=== PATIENT | male | born 1965 | race Caucasian/White ===

== ENCOUNTER 2020-09-02 10:03 | Outpatient (CLI) | payer OTHER | END 2020-09-02 10:04 | disposition home or self-care (01) | LOC: COV 10:03 | PROVIDERS: ATTEND Family Medicine | DX: R50.9 Fever, unspecified (principal); Z20.828 Contact with and (suspected) exposure to other viral communicable diseases; R06.02 Shortness of breath; R53.83 Other fatigue; M79.10 Myalgia, unspecified site ==

== ENCOUNTER 2021-07-29 13:34 | Day surgery (SDC) | payer BC, OTHER ==
[2021-07-29 14:04] LABS: BASOPHILS % (AUTO) 0.8 %; EOSINOPHILS # (AUTO) 0.1 10^3/uL (0.0-0.7); EOSINOPHILS % (AUTO) 2.2 %; HCT - HEMATOCRIT 45.9 % (42.0-52.0); HGB - HEMOGLOBIN 15.1 g/dL (14.0-18.0); LYMPHOCYTES % (AUTO) 27.4 %; MEAN CORPUSCULAR HEMOGLOBIN 30.8 pg (27.0-31.0); MEAN CORPUSCULAR HGB CONC 32.9 g/dL (32.0-36.0); MEAN CORPUSCULAR VOLUME 93.5 fL (80.0-94.0); MEAN PLATELET VOLUME 9.9 fL (7.4-11.4); MONOCYTES # (AUTO) 0.1 10^3/uL (0.0-1.0); MONOCYTES % (AUTO) 2.8 %; NEUTROPHILS # (AUTO) 2.4 10^3/uL (1.5-6.6); NEUTROPHILS % (AUTO) 66.5 %; PLT - PLATELET COUNT 245 10^3/uL (130-450); RED BLOOD COUNT 4.91 10^6/uL (4.70-6.10); RED CELL DISTRIBUTION WIDTH 13.4 % (12.0-15.0); WHITE BLOOD COUNT 3.6 x10^3/uL (4.8-10.8)
[2021-07-29 14:19] LABS: ALBUMIN 4.7 g/dL (3.2-5.5); ALBUMIN/GLOBULIN RATIO 1.3 (1.0-2.2); BILIRUBIN,TOTAL 1.2 mg/dL (0.2-1.0); CREATININE 1.4 mg/dL (0.6-1.2); POTASSIUM 4.4 mmol/L (3.5-5.0); TOTAL PROTEIN 8.4 g/dL (6.7-8.2)
[2021-07-29] MEDS ORDERED: IOPAMIDOL-300 100 ML VIAL ONE (16:58)
[2021-07-29] MEDS ORDERED: IOPAMIDOL-300 100 ML VIAL IVP ONE (17:10)
--- NOTE | 2021-07-29 17:23 | ED Physician Documentation ---
PD HPI ABD PAIN - Stated complaint Stated Complaint: ABD PX - Chief complaint Chief Complaint: Abd Pain - History obtained from History obtained from: Patient - History of Present Illness Timing - onset: Yesterday Timing - duration: Days (2) Timing - details: Gradual onset, Still present Quality: Sharp, Pain Location: RLQ Radiation: No: Chest, , Lower back, Left flank, Left shoulder, Right flank, Right shoulder, Upper back Improved by: Laying still Worsened by: Moving, Position, Palpation Associated symptoms: Loss of appetite. No: Fever, Nausea, Vomiting, Diarrhea, Constipation Similar symptoms before: No diagnosis Recently seen: Clinic - Additional information Additional information: 55-year-old male reports that yesterday he began to have a generalized abdominal discomfort and this slowly migrated to the right lower quadrant and the patient has specific pain in the right lower quadrant. He has pain whenever he moves around and he has lost his appetite. He did have some oatmeal this morning he did not have dinner last night. He was seen at the walk-in clinic and after examination was sent to the emergency department for evaluation for appendicitis. He denies a fever associated with this. He denies having any diarrhea or constipation. He does state that his father has some type of a diarrheal-like illness chronically. Review of Systems Constitutional: denies: Fever Eyes: denies: Decreased vision Ears: denies: Ear pain Nose: denies: Congestion Throat: denies: Sore throat Cardiac: denies: Chest pain / pressure, Palpitations Respiratory: denies: Dyspnea GI: reports: Abdominal Pain. denies: Nausea, Vomiting, Constipation, Diarrhea : denies: Dysuria Skin: denies: Rash Musculoskeletal: denies: Neck pain, Back pain, Extremity pain Neurologic: denies: Generalized weakness, Focal weakness, Numbness PD PAST MEDICAL HISTORY - Allergies Allergies/Adverse Reactions: Allergies Allergy/AdvReac Type Severity Reaction Status Date / Time No Known Drug Allergies Allergy Verified 07/29/21 13:46 PD ED PE NORMAL - Vitals Vital signs reviewed: Yes (hyertensive ) - General General: Alert and oriented X 3, No acute distress, Well developed/nourished - HEENT HEENT: Atraumatic, PERRL, EOMI - Neck Neck: Supple, no meningeal sign, No bony TTP - Cardiac Cardiac: RRR, No murmur - Respiratory Respiratory: No respiratory distress, Clear bilaterally - Abdomen Abdomen: Normal bowel sounds, Soft, Non distended, No organomegaly, Other (specific right lower quadrant tendernes over mcburneys without referred tenderness. ) - Back Back: No CVA TTP, No spinal TTP - Derm Derm: Normal color, Warm and dry, No rash - Extremities Extremities: No deformity, No edema - Neuro Neuro: Alert and oriented X 3, scheme technician 2-12 intact, No motor deficit, No sensory deficit, Normal speech Eye Opening: Spontaneous Motor: Obeys Commands Verbal: Oriented GCS Score: 15 - Psych Psych: Normal mood, Normal affect Results - Vitals Vitals: Vital Signs - 24 hr 07/29/21 07/29/21 07/29/21 13:46 18:27 18:54 Temperature 36.5 C 37.3 C 37.3 C Heart Rate 84 86 86 Respiratory 16 18 18 Rate Blood Pressure 130/98 H 128/88 H 128/88 H O2 Saturation 98 95 95 Oxygen O2 Source Room air - EKG (time done) 1756 Rate: Rate (enter#) (81) Rhythm: NSR Ischemia: Non specific changes, Other (minimal ST elevation in V1 only) Compare to prior EKG: Old EKG unavailable Computer interpretation: Disagree with computer (I do not see ST elevation in anterior leads. Maybe in V1 isolated and minimal. ) - Labs Labs: Laboratory Tests 07/29/21 07/29/21 07/29/21 14:00 14:00 14:00 WBC 3.6 L RBC 4.91 Hgb 15.1 Hct 45.9 MCV 93.5 MCH 30.8 MCHC 32.9 RDW 13.4 Plt Count 245 MPV 9.9 Neut # (Auto) 2.4 Lymph # (Auto) 1.0 L [place] # (Auto) 0.1 Eos # (Auto) 0.1 Baso # (Auto) 0.0 Absolute Nucleated RBC 0.00 Nucleated RBC % 0.0 Sodium 143 Potassium 4.4 Chloride 102 Carbon Dioxide 26 Anion Gap 15.0 H BUN 23 H Creatinine 1.4 H Estimated GFR (MDRD) 52 L Glucose 119 H Calcium 10.0 Total Bilirubin 1.2 H AST 24 ALT 48 Alkaline Phosphatase 69 Troponin I High Sens 5.4 B-Natriuretic Peptide Total Protein 8.4 H Albumin 4.7 Globulin 3.7 Albumin/Globulin Ratio 1.3 Lipase 32 07/29/21 14:00 WBC RBC Hgb Hct MCV MCH MCHC RDW Plt Count MPV Neut # (Auto) Lymph # (Auto) [place] # (Auto) Eos # (Auto) Baso # (Auto) Absolute Nucleated RBC Nucleated RBC % Sodium Potassium Chloride Carbon Dioxide Anion Gap BUN Creatinine Estimated GFR (MDRD) Glucose Calcium Total Bilirubin AST ALT Alkaline Phosphatase Troponin I High Sens B-Natriuretic Peptide 25 Total Protein Albumin Globulin Albumin/Globulin Ratio Lipase - Rads (name of study) CT ab/pel Radiology: Prelim report reviewed (Impression: Acute appendicitis, without findings of perforation or abscess. Incidental note is made of large hiatal hernia fatty liver infiltration splenomegaly remote T12 anterior wedge deformity mild to moderate fat-containing periumbilical hernia.), Final report received ( diverticulosis, without findings of active diverticulitis. Fat-containing left inguinal hernia.), EMP read indepedently, See rad report PD MEDICAL DECISION MAKING - ED course Complexity details: reviewed results, re-evaluated patient, considered differential, d/w patient ED course: 55-year-old male with a 2-day history of abdominal pain localizing to the right lower quadrant has a very specific examination with specific tenderness over McBurney's point without referred tenderness. CT scan is with evidence of acute appendicitis without rupture. Dr. Paige our on-call surgeon is consulted in the case by telephone and recommends EKG be done on this patient with history of heart failure. Further history from the patient regarding his heart failure this occurred about 4 years ago and sounds like it was something like a holiday heart. The patient was put on diuretic and he continues to be on diuretic. He is on some lisinopril as well. Departure - Departure Disposition: ED Transfer to [facility] Clinical Impression: Appendicitis Qualifiers: Appendicitis type: acute appendicitis Acute appendicitis type: with localized peritonitis Appendicitis gangrene presence: without gangrene Appendicitis perforation presence: without perforation Appendicitis abscess presence: without abscess Qualified Code(s): K35.30 - Acute appendicitis with localized peritonitis, without perforation or gangrene Discharge Date/Time: 07/29/21 19:05
--- NOTE | 2021-07-29 17:27 | CT Report ---
PROCEDURE: Abdomen/Pelvis W INDICATIONS: RLQ pain CONTRAST: IV CONTRAST: Isovue 300 ml: 100 PO CONTRAST: *NO PO CONTRAST TECHNIQUE: After the administration of IV contrast, 5 mm thick sections acquired from the diaphragms to the symp hysis. 5 mm thick coronal and sagittal reformats were acquired. For radiation dose reduction, the f ollowing was used: automated exposure control, adjustment of mA and/or kV according to patient size. COMPARISON: None. FINDINGS: Image quality: Excellent. ABDOMEN: Lung bases: Lung bases are clear. Heart size is normal. There is a large hiatal hernia seen, which contains the majority of the stomach. Solid organs: Diffuse fatty liver infiltration can be seen. The liver demonstrates normal size. No focal liver lesions are seen. The spleen is enlarged, measuring 15 cm in greatest axial dimension. No focal splenic lesions are seen. Gallbladder wall does not appear thickened. Biliary system is non dilated. Pancreas enhances normally. No adrenal nodules. Kidneys demonstrate normal size and enha ncement, without hydronephrosis. Peritoneum and bowel: The appendix is abnormal and hyperenhancing. There is moderate surrounding inf lammatory change. The appendix measures up to 12 mm. The appendix is seen anterior and inferior to th e cecum. No free air is seen. No fluid collection can be seen. Bowel loops otherwise demonstrate normal wall thickness and caliber. No free fluid or air. Divertic ulosis can be seen, without kwadwo findings of active diverticulitis. Hyperdense material can be seen within the colon. Please could relate with ingestions (such as Pepto-Bismol) Nodes and vessels: No retroperitoneal or mesenteric adenopathy by size criteria. Aorta and inferior vena cava are normal in size. Miscellaneous: A mild to moderate fat-containing periumbilical hernia is seen. PELVIS: Genitourinary: Bladder wall thickness is normal. Miscellaneous: No inguinal adenopathy. There is a fat-containing left inguinal hernia seen. Bones: No suspicious bony lesions. No acute vertebral body compression fractures. There is a remot e T12 anterior wedge deformity seen, with 30% loss of height anteriorly. Age-appropriate degenerative changes are seen. IMPRESSION: Acute appendicitis, without findings of perforation or abscess. Incidental note is made of: Large hiatal hernia Fatty liver infiltration Splenomegaly Remote T12 anterior wedge deformity Mild to moderate fat-containing periumbilical hernia. Diverticulosis, without findings of active diverticulitis. Fat-containing left inguinal hernia Note: Case discussed by telephone with Dr. Davis at 4:24 PM [place] time on 07/29/2021. Reviewed by: Bora Zurita MD on 07/29/2021 4:26 PM [facility] Approved by: Bora Zurita MD on 07/29/2021 4:26 PM [facility] Station ID: [id number]
[2021-07-29] MEDS ORDERED: PIPERACILLIN/TAZOBACTAM 3.375 GM in SODIUM CHLORIDE 0.9% MINIBAG 100 ML IV STA (18:13)
--- NOTE | 2021-07-29 18:47 | SURGERY HX AND PHYSICAL(T) ---
Surgical History & Physical - Chief Complaint/HPI Chief Complaint: RLQ abdominal pain History of Present Illness: Onset of abdominal pain in RLQ about 24 hours ago. No N/V. No previous abdominal surgery. - PMH/PSH/Social Hx Does the pt have a hx of MRSA?: No Cardiovascular: Congestive heart failure (About 4 years ago, possibly stress and EtOH related. No hx of [place]. 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 No chest pain or shortness of breath. On lisinopril and a diuretic.) Respiratory: None Frequency: Occasional (on weekends) Does the pt have substance abuse?: No - Home Meds and Allergies Allergies/Adverse Reactions: Allergies Allergy/AdvReac Type Severity Reaction Status Date / Time No Known Drug Allergies Allergy Verified 07/29/21 13:46 - Review of Systems Constitutional: No: Fatigue, Fever, Chills Gastrointestinal: Abdominal pain. No: Nausea, Vomiting - Vital Signs Heart Rate: 86 Blood Pressure: 128/88 Temperature: 37.3 C Respiratory Rate: 18 O2 Saturation: 95 Weight (kg): 122.47 kg Height: 1.88 m - Physical Exam General Appearance: positive: No acute distress Eyes Bilatera: positive: Normal inspection ENT: positive: ENT inspection nml Neck: positive: Nml inspection Respiratory: positive: No respiratory distress Cardiovascular: positive: Regular rate & rhythm Peripheral Pulses: positive: 2+ Abdomen: positive: Tenderness (RLQ, localized rebound) Skin: positive: Color nml Extremities: positive: No pedal edema Neurologic/Psychiatric: positive: Oriented x3 - Patient Review Patient Review: Problems were reviewed with the patient during this visit. Medications were reviewed with the patient during this visit. Allergies were reviewed this patient during this visit. Pertinent Tests Reviewed: All pertitent test for this patient were reviewed. - Assessment & Plan Assessment and Plan: Assess: 1) Acute appendicitis by exam and CT scan 2) Hx CHF on diuretic. BNP and troponin pending Plan: To OR for lap appendectomy if troponin, BNP, EKG WNL IV Zosyn ordered in ED
[2021-07-29] MEDS ORDERED: MIDAZOLAM 2 MG/2 ML VIAL ONE ×2 (18:56→19:28)
[2021-07-29] MEDS ORDERED: ROCURONIUM 50 MG/5 ML VIAL ONE ×2 (18:56→20:42)
[2021-07-29] MEDS ORDERED: ONDANSETRON 4 MG/2 ML VIAL ONE (18:56)
[2021-07-29] MEDS ORDERED: PROPOFOL 200 MG/20 ML VIAL IVP ONE ×2 (18:56→20:42)
[2021-07-29] MEDS ORDERED: fentaNYL 100 MCG/2 ML VIAL ONE (18:56)
[2021-07-29] MEDS ORDERED: LIDOCAINE-MPF 2% 5 ML VIAL ONE (18:56)
[2021-07-29] MEDS ORDERED: SUGAMMADEX 200 MG/2 ML VIAL IVP ONE (18:56)
[2021-07-29] MEDS ORDERED: DEXAMETHASONE 4 MG/ML VIAL ONE (18:56)
[2021-07-29] MEDS ORDERED: LIDOCAINE 2%-EPI 1:100000 20 ML MDV ONE ×2 (18:58→20:42)
--- NOTE | 2021-07-29 19:31 | ANESTHESIA ---
Pre-Anesthesia VS, & Labs - Diagnosis acute appendicitis - Procedure lap appy Vital Signs: Temp Pulse Resp BP Pulse Ox 37.3 C 86 18 128/88 H 95 07/29/21 18:54 07/29/21 18:54 07/29/21 18:54 07/29/21 18:54 07/29/21 18:54 Height: 6 ft 2 in Weight (kg): 122.47 kg Body Mass Index: 34.7 BMI Classification: Obese - NPO >8 hours - Lab Results Current Lab Results: Laboratory Tests 07/29/21 14:00: B-Natriuretic Peptide 25 07/29/21 14:00: Troponin I High Sens 5.4 07/29/21 14:00: Sodium 143, Potassium 4.4, Chloride 102, Carbon Dioxide 26, Anion Gap 15.0 H, BUN 23 H, Creatinine 1.4 H, Estimated GFR (MDRD) 52 L, Glucose 119 H, Calcium 10.0, Total Bilirubin 1.2 H, AST 24, ALT 48, Alkaline Phosphatase 69, Total Protein 8.4 H, Albumin 4.7, Globulin 3.7, Albumin/Globulin Ratio 1.3, Lipase 32 07/29/21 14:00: WBC 3.6 L, RBC 4.91, Hgb 15.1, Hct 45.9, MCV 93.5, MCH 30.8, MCHC 32.9, RDW 13.4, Plt Count 245, MPV 9.9, Neut # (Auto) 2.4, Lymph # (Auto) 1.0 L, [place] # (Auto) 0.1, Eos # (Auto) 0.1, Baso # (Auto) 0.0, Absolute Nucleated RBC 0.00, Nucleated RBC % 0.0 Fish Bones: 07/29/21 14:00 07/29/21 14:00 Home Medications and Allergies Allergies/Adverse Reactions: Allergies Allergy/AdvReac Type Severity Reaction Status Date / Time No Known Drug Allergies Allergy Verified 07/29/21 13:46 Anes History & Medical History - Anesthetic History Anesthesia Complications: reports: No previous complications Family history of Anesthesia Complications: Denies Family history of Malignant Hyperthermia: Denies - Medical History Cardiovascular: reports: Congestive heart failure (About 4 years ago, possibly stress and EtOH related. No hx of [place]. 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 No chest pain or shortness of breath. On lisinopril and a diuretic.) Pulmonary: reports: None Exam General: Alert, Oriented x3, Cooperative Dental: WNL Mouth Opening: Greater than 4 Fingerbreadths Neck Mobility: Normal Mallampati classification: II Thyromental Distance: 4-6 cm Respiratory: Lungs clear Cardiovascular: Regular rate Plan Anesthesia Type: General Consent for Procedure(s) Verified and Reviewed: Yes Code Status: Attempt Resuscitation ASA classification: 2-Mild systemic disease Is this case an emergency?: No
[2021-07-29] MEDS ORDERED: METOCLOPRAMIDE 10 MG/2 ML VIAL IVP PRN (19:33)
[2021-07-29] MEDS ORDERED: ePHEDrine 50 MG/ML VIAL IVP PRN (19:33)
[2021-07-29] MEDS ORDERED: HYDROmorphone 0.5 MG/0.5 ML SYRINGE IVP PRN (19:33)
[2021-07-29] MEDS ORDERED: ATROPINE ABBOJECT 1 MG/10 ML SYRINGE IVP PRN (19:33)
[2021-07-29] MEDS ORDERED: fentaNYL 100 MCG/2 ML VIAL IVP PRN (19:33)
[2021-07-29] MEDS ORDERED: MORPHINE 2 MG/ML CARPUJECT IVP PRN (19:33)
[2021-07-29] MEDS ORDERED: NALOXONE 0.4 MG/ML VIAL IVP PRN (19:33)
[2021-07-29] MEDS ORDERED: ONDANSETRON 4 MG/2 ML VIAL IVP PRN ×2 (19:33→21:28)
[2021-07-29] MEDS ORDERED: PHENYLEPHRINE 10 MG/ML VIAL ONE (19:38)
[2021-07-29] MEDS ORDERED: LIDOCAINE 2%-EPI 1:100000 20 ML MDV SUBQ ONE ×2 (19:42)
[2021-07-29 19:46] LABS: B. PARAPERTUSSIS- RESP PCR PAN NOT DETECTED; B. PERTUSSIS- RESP PCR PANEL NOT DETECTED; C. PNEUMONIAE- RESP PCR PANEL NOT DETECTED; CORONAVIRUS 229E-RESP PCR NOT DETECTED; CORONAVIRUS HKU1-RESP PCR NOT DETECTED; CORONAVIRUS NL63-RESP PCR NOT DETECTED; CORONAVIRUS OC43-RESP PCR NOT DETECTED; HUMAN METAPNEUMOVIRUS NOT DETECTED; INFLUENZA A- RESP PCR PANEL NOT DETECTED; INFLUENZA B - RESP PCR PANEL NOT DETECTED; M. PNEUMONIAE- RESP PCR PANEL NOT DETECTED; PARAINFLUENZA VIRUS 1 NOT DETECTED; PARAINFLUENZA VIRUS 2 NOT DETECTED; PARAINFLUENZA VIRUS 3 NOT DETECTED; PARAINFLUENZA VIRUS 4 NOT DETECTED; RHINOVIRUS/ENTEROVIRUS NOT DETECTED; RSV- RESP PCR PANEL NOT DETECTED; SARS-CoV-2 -RESP PCR PANEL NOT DETECTED
[2021-07-29] MEDS ORDERED: ACETAMINOPHEN 1,000 MG/100 ML 100 ML IV ONE (19:51)
[2021-07-29] MEDS ORDERED: LACTATED RINGERS 1,000 ML IV SCH (20:00)
[2021-07-29] MEDS ORDERED: LACTATED RINGERS 1,000 ML IV ONE (21:00)
--- NOTE | 2021-07-29 21:04 | OPERATIVE REPORT ---
Operative Report - General Planned Procedure: Laparoscopic appendectomy Pre-Op Diagnosis: Acute appendicitis Procedure Performed: Laparoscopic appendectomy Post Op Diagnosis: Acute suppurative appendicitis - Procedure Note Primary Surgeon: Royal Secondary Surgeon: patrick Anesthesia Provider: Jessica HARKINS Anesthesia Technique: General ET tube Estimated Blood Loss (mL): 25 Indications: Acute appendicitis on exam and CT Findings: Chronically scarred and acute suppurative appendicitis Complications: none - Other Other Information/Narrative: Patient was taken to the operating room where general esthesia was induced patient was intubated and the lower abdomen was prepped with ChloraPrep and sterilely draped in the usual fashion. After a timeout, incision was made at the umbilicus with a scalpel and Metzenbaum scissors dissection down to the peritoneum. 5 mm trocar was placed atraumatically and CO2 was insufflated. A 5 mm 0 degree laparoscope was inserted and used to visualize the anterior abdominal wall as a 12 mm trocar was placed to the left of midline in the suprapubic location and a 5 mm trocar was placed in the right lower quadrant. There was free fluid in the right lateral abdomen, adjacent to an inflamed appendix with suppuration. The appendix was mobilized and the mesoappendix was divided with an Endo LUKE vascular stapler. Because of the degree of inf lammation and thickening of the mesoappendix, the stapler could not be advanced, so the ligasure was used to divide the mesoappendix with good hemostasis. The base of the appendix was then stapled across with Endo LUKE stapler and the appendix was placed into an Endopouch. The pelvis and right lower quadrant were irrigated well with saline and aspirated dry. The appendix in the Endopouch was withdrawn through the 12 mm trocar site, CO2 was desufflated from the abdomen and all trocars were removed after ensuring good hemostasis. Fascia at the umbilical and left suprapubic trocar sites was closed with 0 Vicryl on a UR needle and skin incisions were closed with 5-0 Monocryl. Surgical glue was applied to the incisions. Patient was extubated and taken to recovery in stable condition.
--- NOTE | 2021-07-29 21:25 | ANESTHESIA POST OP EVALUATION ---
Anesthesia Post Eval - Post Anesthesia Eval Vitals: Last Vital Signs Temp 36.6 C 07/29/21 21:15 Pulse 76 07/29/21 21:15 Resp 16 07/29/21 21:15 BP 129/84 H 07/29/21 21:15 Pulse Ox 100 07/29/21 21:15 CV Function Including HR & BP: Stable Pain Control: Satisfactory Nausea & Vomiting: Negative Mental Status: Baseline Respiratory Status: Airway Patent Hydration Status: Satisfactory Anesthesia Complications: None
[2021-07-30] MEDS: oxyCODONE 5 MG TABLET PO PRN ×3 (00:10→14:12)
[2021-07-30] MEDS: PIPERACILLIN/TAZOBACTAM 3.375 GM in SODIUM CHLORIDE 0.9% MINIBAG 100 ML IV SCH ×2 (02:13→10:04)
--- NOTE | 2021-07-30 09:25 | PROVIDER PROGRESS NOTE ---
Subjective - General Procedure Date: 07/29/21 Post Op Days: 1 Procedure Performed: Lap appendectomy - Review of Systems Wound/Incisions: positive: Healing well General: positive: Other (Headache) Objective - Patient Data Vital Signs: Vital Signs x48h Temp Pulse Resp BP Pulse Ox 07/30/21 07:46 36.9 C 70 16 122/69 98 07/30/21 04:00 36.9 C 81 16 124/75 95 07/30/21 01:30 37.1 C 79 16 127/69 92 Weight: Weight 07/28/21 07/29/21 07/30/21 23:59 23:59 23:59 Weight (kg) 122.47 kg Intake & Output: Intake and Output Totals x24h 07/28/21 07/29/21 07/30/21 23:59 23:59 23:59 Intake Total 100 100 Balance 100 100 - Lab Results Lab Results: 07/29/21 14:00 07/29/21 14:00 Other Lab Results: Lab Results x24hrs 07/29/21 07/29/21 07/29/21 Range/Units 18:29 14:00 14:00 WBC (4.8-10.8) x10^3/uL RBC (4.70-6.10) 10^6/uL Hgb (14.0-18.0) g/dL Hct (42.0-52.0) % MCV (80.0-94.0) fL MCH (27.0-31.0) pg MCHC (32.0-36.0) g/dL RDW (12.0-15.0) % Plt Count (130-450) 10^3/uL MPV (7.4-11.4) fL Neut # (Auto) (1.5-6.6) 10^3/uL Lymph # (Auto) (1.5-3.5) 10^3/uL [place] # (Auto) (0.0-1.0) 10^3/uL Eos # (Auto) (0.0-0.7) 10^3/uL Baso # (Auto) (0.0-0.1) 10^3/uL Absolute Nucleated RBC x10^3/uL Nucleated RBC % /100WBC Sodium (135-145) mmol/L Potassium (3.5-5.0) mmol/L Chloride (101-111) mmol/L Carbon Dioxide (21-32) mmol/L Anion Gap (6-13) BUN (6-20) mg/dL Creatinine (0.6-1.2) mg/dL Estimated GFR (MDRD) (>89) Glucose (70-100) mg/dL Calcium (8.5-10.3) mg/dL Total Bilirubin (0.2-1.0) mg/dL AST (10-42) IU/L ALT (10-60) IU/L Alkaline Phosphatase (42-121) IU/L Troponin I High Sens 5.4 (2.3-19.7) ng/L B-Natriuretic Peptide 25 (5-100) pg/mL Total Protein (6.7-8.2) g/dL Albumin (3.2-5.5) g/dL Globulin (2.1-4.2) g/dL Albumin/Globulin Ratio (1.0-2.2) Lipase (22-51) U/L Nasal Adenovirus (PCR) NOT DETECTED Nasal B. parapertussis DNA (PCR) NOT DETECTED Nasal Coronavir 229E PCR NOT DETECTED Nasal Coronavir HKU1 PCR NOT DETECTED Nasal Coronavir NL63 PCR NOT DETECTED Nasal Coronavir OC43 PCR NOT DETECTED Nasal Enterovir/Rhinovir PCR NOT DETECTED Nasal Influenza B PCR NOT DETECTED Nasal Influenza A PCR NOT DETECTED Nasal Parainfluen 1 PCR NOT DETECTED Nasal Parainfluen 2 PCR NOT DETECTED Nasal Parainfluen 3 PCR NOT DETECTED Nasal Parainfluen 4 PCR NOT DETECTED Nasal RSV (PCR) NOT DETECTED Nasal B.pertussis DNA PCR NOT DETECTED Nasal C.pneumoniae (PCR) NOT DETECTED Charanjit Human Metapneumo PCR NOT DETECTED Nasal M.pneumoniae (PCR) NOT DETECTED Nasal SARS-CoV-2 (PCR) NOT DETECTED 07/29/21 07/29/21 Range/Units 14:00 14:00 WBC 3.6 L (4.8-10.8) x10^3/uL RBC 4.91 (4.70-6.10) 10^6/uL Hgb 15.1 (14.0-18.0) g/dL Hct 45.9 (42.0-52.0) % MCV 93.5 (80.0-94.0) fL MCH 30.8 (27.0-31.0) pg MCHC 32.9 (32.0-36.0) g/dL RDW 13.4 (12.0-15.0) % Plt Count 245 (130-450) 10^3/uL MPV 9.9 (7.4-11.4) fL Neut # (Auto) 2.4 (1.5-6.6) 10^3/uL Lymph # (Auto) 1.0 L (1.5-3.5) 10^3/uL [place] # (Auto) 0.1 (0.0-1.0) 10^3/uL Eos # (Auto) 0.1 (0.0-0.7) 10^3/uL Baso # (Auto) 0.0 (0.0-0.1) 10^3/uL Absolute Nucleated RBC 0.00 x10^3/uL Nucleated RBC % 0.0 /100WBC Sodium 143 (135-145) mmol/L Potassium 4.4 (3.5-5.0) mmol/L Chloride 102 (101-111) mmol/L Carbon Dioxide 26 (21-32) mmol/L Anion Gap 15.0 H (6-13) BUN 23 H (6-20) mg/dL Creatinine 1.4 H (0.6-1.2) mg/dL Estimated GFR (MDRD) 52 L (>89) Glucose 119 H (70-100) mg/dL Calcium 10.0 (8.5-10.3) mg/dL Total Bilirubin 1.2 H (0.2-1.0) mg/dL AST 24 (10-42) IU/L ALT 48 (10-60) IU/L Alkaline Phosphatase 69 (42-121) IU/L Troponin I High Sens (2.3-19.7) ng/L B-Natriuretic Peptide (5-100) pg/mL Total Protein 8.4 H (6.7-8.2) g/dL Albumin 4.7 (3.2-5.5) g/dL Globulin 3.7 (2.1-4.2) g/dL Albumin/Globulin Ratio 1.3 (1.0-2.2) Lipase 32 (22-51) U/L Nasal Adenovirus (PCR) Nasal B. parapertussis DNA (PCR) Nasal Coronavir 229E PCR Nasal Coronavir HKU1 PCR Nasal Coronavir NL63 PCR Nasal Coronavir OC43 PCR Nasal Enterovir/Rhinovir PCR Nasal Influenza B PCR Nasal Influenza A PCR Nasal Parainfluen 1 PCR Nasal Parainfluen 2 PCR Nasal Parainfluen 3 PCR Nasal Parainfluen 4 PCR Nasal RSV (PCR) Nasal B.pertussis DNA PCR Nasal C.pneumoniae (PCR) Charanjit Human Metapneumo PCR Nasal M.pneumoniae (PCR) Nasal SARS-CoV-2 (PCR) - Current Medications Current Medications: Current Medications Generic Name Dose Route Start Last Admin Trade Name Freq PRN Reason Stop Dose Admin Piperacillin Sod/Tazobactam 100 mls @ 25 mls/hr 07/30/21 02:00 07/30/21 06:15 Sod 3.375 gm/ Sodium Chloride IV 07/30/21 21:59 Infused Q8H NATALI Infusion Oxycodone HCl 5 mg 07/29/21 21:28 07/30/21 07:46 Oxycodone 5 Mg Tablet PO 5 mg Q4HR PRN Administration PAIN - Physical Exam Wound/Incisions: positive: Healing well ABX Reporting Has patient been on IV antibiotics over the past 48 hours?: No Impression/Plan - Problem List Problem List: Acute appendicitis, s/p lap appendectomy on Zosyn for 24 hours. Regular diet Activity encouraged D/C later today if continues to do well.
[2021-07-30] MEDS: ACETAMINOPHEN 325 MG TABLET PO PRN ×2 (09:35→14:11)
[2021-07-30 13:10] VITALS: BP 115/76
== END 2021-07-30 15:02 | disposition home or self-care (01) ==
LOC: ED 13:34 → SDS 18:10 → MS2 21:37 → SDS 07-30 15:02
PROVIDERS: ATTEND Surgery
PROC: 0DTJ4ZZ Resection of Appendix, Percutaneous Endoscopic Approach (ICD-10-PCS; principal; 2021-07-29 19:15)
DX: K35.30 Acute appendicitis with localized peritonitis, without perforation or gangrene (principal); I50.9 Heart failure, unspecified; E66.9 Obesity, unspecified; Z68.34 Body mass index [BMI] 34.0-34.9, adult; Z20.822 Contact with and (suspected) exposure to COVID-19
CPT/HCPCS: 0202U; 36415; 44970; 74177; 80053; 83690; 83880; 84484; 85025; 93005; 99284; 99285; A9270; J0131; J7120; Q9967

== ENCOUNTER 2021-10-05 11:32 | Outpatient (CLI) | payer BC | END 2021-10-05 11:33 | disposition home or self-care (01) | LOC: LAB.S 11:32 | PROVIDERS: ATTEND Internal Medicine | DX: Z12.5 Encounter for screening for malignant neoplasm of prostate (principal) | CPT/HCPCS: 36415; 84153 ==

== ENCOUNTER 2022-03-24 10:24 | Day surgery (SDC) | payer BC ==
--- NOTE | 2022-03-24 10:10 | ANESTHESIA ---
Pre-Anesthesia VS, & Labs - Diagnosis screening - Procedure colonoscopy Height: 6 ft 2 in - NPO >8 hours Last Fluid Intake: am prep - Lab Results Lab results reviewed: Yes Home Medications and Allergies Home Medications: Ambulatory Orders Aspirin [[place]] 81 mg PO DAILY 03/24/22 Atorvastatin Calcium 40 mg PO DAILY 03/24/22 Furosemide [Lasix] 20 mg PO DAILY 03/24/22 Lisinopril [Zestril] 40 mg PO DAILY 03/24/22 Loratadine [Claritin] 10 mg PO 03/24/22 Omeprazole 40 mg PO DAILY 03/24/22 Spironolactone [Aldactone] 25 mg PO DAILY 03/24/22 bisoproloL fumarate [Bisoprolol Fumarate] 5 gm MC DAILY 03/24/22 Allergies/Adverse Reactions: Allergies Allergy/AdvReac Type Severity Reaction Status Date / Time No Known Drug Allergies Allergy Verified 07/29/21 13:46 Anes History & Medical History - Anesthetic History Anesthesia Complications: reports: No previous complications Family history of Anesthesia Complications: Denies Family history of Malignant Hyperthermia: Denies - Medical History Cardiovascular: reports: Congestive heart failure (About 4 years ago, possibly stress and EtOH related. No hx of [place]. 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 No chest pain or shortness of breath. On lisinopril and a diuretic.) Pulmonary: reports: None Psychosocial: reports: Alcohol History of Cancer?: No - Surgical History General: reports: Appendectomy Exam General: Alert, Oriented x3, Cooperative Dental: WNL Mouth Opening: Greater than 4 Fingerbreadths Neck Mobility: Normal Mallampati classification: I Thyromental Distance: greater than 6 cm Respiratory: Lungs clear, Normal breath sounds, No respiratory distress Cardiovascular: Regular rate Neurological: Normal speech Mental/Cognitive Status: Alert/Oriented X3, Normal for patient Cognitive Status: Within normal limits Plan Anesthesia Type: Total IV Consent for Procedure(s) Verified and Reviewed: Yes Code Status: Attempt Resuscitation ASA classification: 2-Mild systemic disease Is this case an emergency?: No
[2022-03-24] MEDS ORDERED: LACTATED RINGERS 1,000 ML IV ONE ×2 (11:01→12:28)
[2022-03-24] MEDS ORDERED: MIDAZOLAM 2 MG/2 ML VIAL ONE (11:14)
[2022-03-24] MEDS ORDERED: PROPOFOL 500 MG/50 ML 500 MG/50 ML VIAL ONE (11:40)
--- NOTE | 2022-03-24 11:53 | HISTORY & PHYSICAL EXAMINATION ---
Chief Complaint - Chief Complaint Chief Complaint: here for colon cancer screening History of Present Illness - History Obtained From Records Reviewed: yes History obtained from: pt Exam Limitations: none - History of Present Illness HPI Comment/Other: here for colon cancer screening. no problems History - Past Medical History Cardiovascular: reports: Congestive heart failure (About 4 years ago, possibly stress and EtOH related. No hx of ND. No care team assistant followup in last 2 years. No chest pain or shortness of breath. On lisinopril and a diuretic.) Respiratory: reports: None MRSA Hx?: No - Past Surgical History General: reports: Appendectomy Meds/Allgy - Home Medications Home Medications: Ambulatory Orders Medication Instructions Recorded Confirmed Aspirin [[place]] 81 mg PO DAILY 03/24/22 03/24/22 Atorvastatin Calcium 40 mg PO DAILY 03/24/22 03/24/22 Furosemide [Lasix] 20 mg PO DAILY 03/24/22 03/24/22 Lisinopril [Zestril] 40 mg PO DAILY 03/24/22 03/24/22 Loratadine [Claritin] 10 mg PO 03/24/22 Omeprazole 40 mg PO DAILY 03/24/22 03/24/22 Spironolactone [Aldactone] 25 mg PO DAILY 03/24/22 03/24/22 bisoproloL fumarate [Bisoprolol 5 gm MC DAILY 03/24/22 03/24/22 Fumarate] - Allergies Allergies/Adverse Reactions: Allergies Allergy/AdvReac Type Severity Reaction Status Date / Time No Known Drug Allergies Allergy Verified 07/29/21 13:46 Review of Systems - Other Findings Other Findings: 10 pt ros as above otherwise unremarkable Exam - Vital Signs Vital Signs: Vital Signs x48h Temp Pulse Resp BP Pulse Ox 03/24/22 10:44 36.3 C L 78 16 116/68 98 - Physical Exam General Appearance: positive: No acute distress, Alert Eyes Bilateral: positive: PERRL, EOMI ENT: positive: No signs of dehydration Neck: positive: No JVD Respiratory: positive: No respiratory distress, Breath sounds nml Cardiovascular: positive: Regular rate & rhythm Abdomen: positive: Non-tender, No distention Neurologic/Psychiatric: positive: Oriented x3 Conclusion/Plan - Problem List (1) Colon cancer screening Conclusion/Plan: plan colonoscopy. parq held and consent obtained - Lab Results Lab results reviewed: Yes
[2022-03-24] MEDS ORDERED: LIDOCAINE-MPF 2% 5 ML VIAL ONE (12:03)
[2022-03-24] MEDS ORDERED: ePHEDrine 50 MG/ML VIAL IVP ONE (12:17)
--- NOTE | 2022-03-24 12:37 | ANESTHESIA POST OP EVALUATION ---
Anesthesia Post Eval - Post Anesthesia Eval Vitals: Last Vital Signs Temp 36.4 C L 03/24/22 12:29 Pulse 81 03/24/22 12:29 Resp 14 03/24/22 12:29 BP 96/63 03/24/22 12:29 Pulse Ox 96 03/24/22 12:29 CV Function Including HR & BP: Stable Pain Control: Satisfactory Nausea & Vomiting: Negative Mental Status: Baseline Respiratory Status: Airway Patent Hydration Status: Satisfactory Anesthesia Complications: None
[2022-03-24 12:51] VITALS: BP 106/62
== END 2022-03-24 10:25 | disposition home or self-care (01) ==
LOC: SDS 10:24
PROVIDERS: ATTEND Surgery
PROC: 0DBM8ZZ Excision of Descending Colon, Via Natural or Artificial Opening Endoscopic (ICD-10-PCS; 2022-03-24)
PROC: 0DBK8ZZ Excision of Ascending Colon, Via Natural or Artificial Opening Endoscopic (ICD-10-PCS; principal; 2022-03-24 11:30)
DX: Z12.11 Encounter for screening for malignant neoplasm of colon (principal); D12.2 Benign neoplasm of ascending colon; D12.4 Benign neoplasm of descending colon; K64.8 Other hemorrhoids; K57.30 Diverticulosis of large intestine without perforation or abscess without bleeding; Z86.79 Personal history of other diseases of the circulatory system
CPT/HCPCS: 45380; J7120

== ENCOUNTER 2022-08-08 08:45 | Outpatient (CLI) | payer BC | END 2022-08-08 08:46 | disposition home or self-care (01) | LOC: DI 08:45 | PROVIDERS: ATTEND Internal Medicine Cardiovascular Disease | DX: I50.9 Heart failure, unspecified (principal); I34.0 Nonrheumatic mitral (valve) insufficiency; I77.810 Thoracic aortic ectasia | CPT/HCPCS: 93306 ==

== ENCOUNTER 2023-10-31 08:00 | Outpatient (CLI) | payer BC, OTHER ==
--- NOTE | 2023-10-31 15:51 | XRAY Report ---
PROCEDURE: Knee 3 View RT INDICATIONS: CONTUSION OF RIGHT KNEE TECHNIQUE: 3 views of the knee(s) were acquired. COMPARISON: None. FINDINGS: Bones: No fractures or dislocations. No suspicious bony lesions. Soft tissues: Trace knee joint effusion. No suspicious soft tissue calcifications or masses. IMPRESSION: No acute bony abnormality. Reviewed by: Christian Urbina MD on 10/31/2023 3:50 PM PST Approved by: Christian Urbina MD on 10/31/2023 3:50 PM PST Station ID: [id number]
== END 2023-10-31 23:59 | disposition home or self-care (01) ==
LOC: DI.S 08:00
PROVIDERS: ATTEND Emergency Medicine
DX: S80.01XA Contusion of right knee, initial encounter (principal)